=== PATIENT | female | born 1975 | race Caucasian/White ===

== ENCOUNTER 2018-07-26 06:45 | Day surgery (SDC) | payer OTHER ==
[~2018-07-26] VITALS: Ht 157.5 cm; Wt 88.0 kg
[~2018-07-26 06:45] MED LIST: ALLEGRA ALLERG180 MG PO; IBU800 MG PO
--- NOTE | 2018-07-26 10:18 | NUR ---
07/26/18 Jack8 Jeannine Moore 1010-PATIENT ARRIVED TO PACU ON 6L MASK O2 RR EVEN. PATIENT REACTIVE TO VOICE EYES OPEN DENIES PAIN OR NAUSEA. 2 LAP SITES TO ABDOMEN CDI. SR
--- NOTE | 2018-07-26 10:42 | NUR ---
PT ALERT,ORIENTED AND SUPPORTED BY FAMILY AT BS. PT SEEMS RELAXED, FAMILY WELL. OUTLINED TODAY, PT DECLINED PRAYER AT THIS TIME. WILL FOLLOW NEEDED
--- NOTE | 2018-07-26 12:14 | NUR ---
1055 PT ARRIVED FROM PACU. AWAKE TALKING WITH STAFF. DENIES PAIN AND NAUSEA. PT ASISTED UP TO RESTROOM WITH ASSIST OF RN AND STUDENT. PT TOLERATED WELL. WATER AND COFFEE GIVEN PER PT REQUEST. PT'S AND SON AT BEDSIDE.
--- NOTE | 2018-08-01 14:03 | OR ---
[facility] [address] [place], [place] [address] Signed DATE OF OPERATION: 07/26/2018 SURGEON: Tommie Reyes MD PREOPERATIVE DIAGNOSIS: Pelvic pain, dyspareunia. POSTOPERATIVE DIAGNOSIS: Pelvic pain, dyspareunia. PROCEDURE: Diagnostic laparoscopy. LEAD DESIGNER: Dr. Vcitoria. ANESTHESIA: General. ESTIMATED BLOOD LOSS: 10 mL. SPECIMEN: None. DRAINS: None. FINDINGS: Normal-appearing cervix, thick closed with IUD string in the os. Vagina, no blood. Uterus, normal size and shape without any evidence of endometriosis or adhesions. The anterior cul-de-sac was free of any endometriosis or adhesions. Posterior cul-de-sac was free of any endometriosis or adhesions. The left tube was normal in length and normal-appearing fimbriated end. No adhesions. Left ovary is normal in size and shape without any evidence of endometriosis or adhesions. The left pelvic sidewall was also free of any endometriosis or adhesions. The right tube was normal in length and normal pink fimbriated end. No adhesions. Right ovary is normal in size and shape without any evidence of endometriosis or adhesions. Right pelvic sidewall was free of any endometriosis or adhesions. There were a few hellen in the area of the appendectomy, but no adhesions or lesions in this area. The rest of the abdomen and pelvis was free Electronically Signed By: TOMMIE REYES MD 08/01/18 1403 PATIENT NAME: NAOMI GARCIA POOJAAlee OPERATIVE REPORT DATE OF : 75 REPORT #: [id number] PHYSICIAN: TOMMIE REYES MD PCP: ALYSE GALVEZ PA-C REPORT IS CONFIDENTIAL AND NOT TO BE RELEASED WITHOUT AUTHORIZATION [facility] [address] [place], [place] [address] Signed of any masses or adhesions. COMPLICATIONS: None. DESCRIPTION OF PROCEDURE: The patient was brought to the operating room and placed in supine position. After adequate general anesthesia was obtained, she was placed in the dorsal lithotomy position, prepped and draped in usual sterile fashion. A Shepherd catheter was placed in the bladder and a sponge stick placed in the vagina. Attention was then drawn to the abdomen. A small infraumbilical skin incision was made after injecting the area with 0.25% Marcaine. The abdominal wall was then elevated and 5 mm direct entry trocar and sleeve were used to carefully enter the abdomen under direct visualization with the skin, subcutaneous tissue, fascia, and peritoneum identified and once the tip was in the abdomen, CO2 which was hooked to the trocar entered the abdomen to help begin insufflating and drop the bowel away from the abdominal wall. Once the trocar and sleeve were in the abdomen, the trocar was removed and the laparoscope with video attachment entered the abdomen under direct visualization. Carbon dioxide was used to infuse the abdomen. A small skin incision was made on the left side approximately 10 cm lateral to the midline. The area was first transilluminated and then injected with 0.25% Marcaine. A small skin incision was made and then a bladed 5 mm trocar and sleeve entered the abdomen under direct visualization. Trocar was removed and the balloon inflated to hold the sleeve in place. The blunt grasper was inserted through the sleeve. The above findings were noted. The entire pelvis was carefully inspected. The tubes and ovaries and ovarian fossa were observed and no reason for pain could be seen. The posterior cul-de-sac was also free of any reason for the pain. After careful inspection of the entire pelvis, no abnormalities were seen, so the instruments were removed. The gas allowed to escape and two sleeves were removed. Two skin incisions were closed using subcuticular stitches of 4-0 Vicryl. The sponge stick was removed from the vagina and the Shepherd catheter removed from the bladder. The patient tolerated the procedure well and went to the recovery room in good condition. The sponge, needle, and instrument counts were correct at the end of the procedure. Tommie Reyes MD MJB/MODL /[id number] Electronically Signed By: TOMMIE REYES MD 08/01/18 1403 PATIENT NAME: NAOMI GARCIA OPERATIVE REPORT DATE OF : 75 REPORT #: [id number] PHYSICIAN: TOMMIE REYES MD PCP: ALYSE GALVEZ PA-C REPORT IS CONFIDENTIAL AND NOT TO BE RELEASED WITHOUT AUTHORIZATION [facility] [address] [place] [address] [place] [address] Signed cc: Alyse Galvez PA-C Copies: ALYSE GALVEZ PA-C ~ Electronically Signed By: TOMMIE REYES MD 08/01/18 1403 PATIENT NAME: NAOMI GARCIA OPERATIVE REPORT DATE OF : 75 REPORT #: [id number] PHYSICIAN: TOMMIE REYES MD PCP: ALYSE GALVEZ PA-C REPORT IS CONFIDENTIAL AND NOT TO BE RELEASED WITHOUT AUTHORIZATION
== END 2018-07-26 12:25 | disposition home or self-care (01) ==
LOC: OPS 06:45 → DS 06:45 → OPS 08:45
PROVIDERS: General Practice
PROC: 0WJJ4ZZ Inspection of Pelvic Cavity, Percutaneous Endoscopic Approach (ICD-10-PCS; principal; 2018-07-26 08:45)
DX: N94.10 Unspecified dyspareunia (principal); F17.210 Nicotine dependence, cigarettes, uncomplicated; E66.01 Morbid (severe) obesity due to excess calories; K21.9 Gastro-esophageal reflux disease without esophagitis; F41.0 Panic disorder [episodic paroxysmal anxiety]; F40.240 Claustrophobia; Z91.040 Latex allergy status; Z68.35 Body mass index [BMI] 35.0-35.9, adult
CPT/HCPCS: 00840; J0330; J1100; J1644; J1885; J2250; J2405; J2704; J2765; J3010; J7120